=== PATIENT | male | born 1960 | race Hispanic/Latino ===

== ENCOUNTER 2017-11-20 15:15 | Inpatient (IN) | payer OTHER ==
[~2017-11-20] VITALS: Ht 180.3 cm; Wt 168.0 kg
[~2017-11-20 15:15] MED LIST: AMIO200T5 PO; ASPI-1181 PO; GLIP10TA9 PO; METF-446 PO; NAPR-1023 PO; PRAV80TA21 PO; TRAZ-187 PO; VENL75TA63 PO; [UNRECOGNIZED DRUG - OTHER] SQ
[2017-11-20 15:54] VITALS: BP 145/78
[2017-11-20 15:54] LABS: APPEARANCE,URINE Clear (CLEAR); BILIRUBIN,URINE Negative (NEGATIVE); COLOR,URINE Dark Yellow (YELLOW); GLUCOSE, URINE (UA) Negative (NEGATIVE); KETONES,URINE Trace mg/dL (NEGATIVE); LEUKOCYTE ESTERASE ,URINE Negative (NEGATIVE); NITRATE,URINE Negative (NEGATIVE); OCCULT BLOOD,URINE Negative (NEGATIVE); PROTEIN,URINE Negative (NEGATIVE)
[2017-11-20 15:59] LABS: EOSINOPHILS % (AUTO) 1.3 % (0.0-8.0); HEMATOCRIT 48.8 % (42-54); LYMPHOCYTES % (AUTO) 30.3 % (21.0-51.0); MEAN CORPUSCULAR HEMOGLOBIN 29.7 pg (27.0-33.0); MEAN CORPUSCULAR VOLUME 90.1 fL (79-99); NEUTROPHILS % (AUTO) 57.4 % (40.0-77.0); NUCLEATED RED BLOOD CELLS 0.1 % (0.0-0.19); PLATELET COUNT (AUTO) 154 K/uL (130-400); RED BLOOD CELL COUNT(AUTO) 5.42 MIL/uL (4.50-6.20); RED CELL DISTRIBUTION WIDTH 15.2 % (11.0-15.5); WHITE BLOOD COUNT (AUTO) 5.6 K/uL (4.8-10.8)
[2017-11-20 16:10] LABS: POTASSIUM 4.1 mmol/L (3.5-5.1)
[2017-11-20 16:14] LABS: INR 0.93 (0.85-1.15); PARTIAL THROMBOPLASTIN TIME 27.7 SEC (26.3-35.5); PROTHROMBIN TIME 9.8 SEC (9.6-11.6)
[2017-11-20 16:26] LABS: BACTERIA,URINE Rare /HPF (None Seen); RBC,URINE 0-1 /HPF (0-1); SQUAMOUS EPITHELIAL CELL,UR Rare /HPF (0-2); WBC,URINE 0-1 /HPF (0-1)
[2017-11-20 16:28] LABS: HYALINE CASTS, URINE 0-1 /LPF (0-1 /LPF); MUCUS,URINE Moderate LPF (None Seen)
[2017-11-21] VITALS (17 sets, daily range): BP systolic 117–165; BP diastolic 70–95
[2017-11-21] MEDS ORDERED: CEFAZOLIN 3GM /D5W 100ML 100 ML IV SCH (06:00)
[2017-11-21] MEDS ORDERED: LACTATED RINGERS 1000ML 0 ML IV ONE (10:35)
[2017-11-21] MEDS ORDERED: SODIUM CHLORIDE 0.9% 1000ML 1,000 ML IV ONE (10:42)
[2017-11-21] MEDS ORDERED: VENL100T4 PO (11:09)
[2017-11-21] MEDS ORDERED: TYL3 PO (11:09)
[2017-11-21] MEDS ORDERED: CYCL10TA7 PO (11:09)
[2017-11-21] MEDS: CEFAZOLIN SODIUM 1 GM VIAL ONE ×2 (11:11→13:50)
[2017-11-21] MEDS ORDERED: METOCLOPRAMIDE 10 MG/2 ML VIAL ONE (11:34)
[2017-11-21] MEDS ORDERED: OXYCODONE HCL 10 MG TAB.SR.12H PO ONE (11:35)
[2017-11-21] MEDS ORDERED: CELECOXIB 200 MG CAP ONE (11:35)
[2017-11-21] MEDS ORDERED: ACETAMINOPHEN EXTRA STRENGTH 500 MG TABLET ONE (11:35)
[2017-11-21] MEDS ORDERED: KETOROLAC TROMETHAMINE 15MG/ML ONE (11:36)
[2017-11-21] MEDS ORDERED: TRANEXAMIC ACID 1000MG/10ML IV ONE (12:32)
[2017-11-21] MEDS ORDERED: CEFAZOLIN SODIUM 1 GM VIAL ONE (12:40)
[2017-11-21] MEDS ORDERED: ROPIVACAINE 0.5% 5MG/ML 30ML IJ ONE (13:14)
[2017-11-21] MEDS ORDERED: KETAMINE 50MG/ML SYRINGE 50 MG/ML DISP.SYRIN IV ONE (13:15)
[2017-11-21] MEDS ORDERED: PROPOFOL 10 MG/ML 20ML VIAL IV ONE (13:18)
[2017-11-21] MEDS ORDERED: SUCCINYLCHOLINE CHLORIDE 20 MG/ML 10 ML VIAL ONE (13:18)
[2017-11-21] MEDS ORDERED: ROCURONIUM 10MG/1ML SYR 10 MG/ML ML ONE ×2 (13:25→13:48)
[2017-11-21] MEDS ORDERED: DEXAMETHASONE SOD PHOSPHATE 10MG/ML 1ML VIAL ONE (13:29)
[2017-11-21] MEDS ORDERED: FENTANYL CITRATE PF 50 MCG/1 ML 5ML AMP IV ONE (14:03)
[2017-11-21] MEDS ORDERED: CEFAZOLIN SODIUM 1 GM VIAL IRRIG ONE (14:26)
[2017-11-21] MEDS ORDERED: DiphenhydrAMINE HCL 50 MG/ML VIAL IVP PRN (15:45)
[2017-11-21] MEDS ORDERED: KETOROLAC TROMETHAMINE 15MG/ML IV PRN (15:45)
[2017-11-21] MEDS ORDERED: OXYCODONE HCL 5 MG TAB PO PRN (15:45)
[2017-11-21] MEDS ORDERED: LIDOCAINE HCL-MPF 1% 2ML VIAL IVP PRN (15:45)
[2017-11-21] MEDS ORDERED: TRAMADOL HCL 50 MG TABLET PO PRN (15:45)
[2017-11-21] MEDS: ACETAMINOPHEN EXTRA STRENGTH 500 MG TABLET PO SCH ×2 (15:45→23:53)
[2017-11-21] MEDS ORDERED: POTASSIUM CHLORIDE 20 MEQ ERTAB PO PRN (15:45)
[2017-11-21] MEDS ORDERED: TEMAZEPAM 15 MG CAPSULE PO PRN (15:45)
[2017-11-21] MEDS ORDERED: ONDANSETRON HCL 4 MG/2 ML VIAL IVP PRN (15:45)
[2017-11-21] MEDS ORDERED: POTASSIUM CHLORIDE 10% ELIXIR 20 MEQ/15 ML UDCUP PO PRN (15:45)
[2017-11-21] MEDS ORDERED: POTASSIUM CHLORIDE 20MEQ/100ML 100 ML IV PRN (15:45)
[2017-11-21] MEDS ORDERED: FERROUS FUMARATE 324 MG TABLET PO PRN (15:45)
[2017-11-21] MEDS ORDERED: NEOSTIGMINE 5MG/5ML SYR IV ONE (15:51)
[2017-11-21] MEDS ORDERED: GLYCOPYRROLATE 1 MG/5 ML SYRINGE ONE (15:51)
[2017-11-21] MEDS: INSULIN HUMULIN R 100 UNIT/ML 3ML SQ SCH ×2 (16:30→21:07)
[2017-11-21] MEDS: SODIUM CHLORIDE 0.9% 1000ML 1,000 ML IV SCH ×2 (17:55→23:53)
[2017-11-21] MEDS ORDERED: ACETAMINOPHEN-CODEINE 300/30MG TAB PO PRN (19:00)
[2017-11-21] MEDS ORDERED: CYCLOBENZAPRINE HCL 10 MG TABLET PO PRN (19:00)
[2017-11-21] MEDS: CEFAZOLIN 3GM /D5W 100ML 100 ML IV SCH (20:57)
[2017-11-21] MEDS: AMIODARONE HCL 200 MG TABLET PO SCH (20:58)
[2017-11-21] MEDS: ASPIRIN 325 MG TABLET PO SCH (20:58)
[2017-11-21] MEDS: SIMVASTATIN 20 MG TABLET PO SCH (20:58)
[2017-11-21] MEDS: PREGABALIN 25 MG CAP PO SCH (20:58)
[2017-11-21] MEDS: CELECOXIB 200 MG CAP PO SCH (20:58)
[2017-11-21] MEDS: FAMOTIDINE 20MG TAB 20 MG TAB PO SCH (20:58)
[2017-11-22] MEDS: CEFAZOLIN 3GM /D5W 100ML 100 ML IV SCH (03:58)
[2017-11-22 04:08] LABS: HEMATOCRIT 43.5 % (42-54); MEAN CORPUSCULAR HEMOGLOBIN 30.2 pg (27.0-33.0); MEAN CORPUSCULAR HGB CONC 33.1 g/dL (32.0-36.0); MEAN CORPUSCULAR VOLUME 91.1 fL (79-99); NUCLEATED RED BLOOD CELLS 0.1 % (0.0-0.19); PLATELET COUNT (AUTO) 146 K/uL (130-400); RED BLOOD CELL COUNT(AUTO) 4.78 MIL/uL (4.50-6.20); RED CELL DISTRIBUTION WIDTH 15.5 % (11.0-15.5); WHITE BLOOD COUNT (AUTO) 9.4 K/uL (4.8-10.8)
[2017-11-22 04:18] LABS: POTASSIUM 4.7 mmol/L (3.5-5.1)
[2017-11-22 04:55] VITALS: BP 109/52
[2017-11-22] MEDS: INSULIN HUMULIN R 100 UNIT/ML 3ML SQ SCH ×4 (06:28→20:45)
[2017-11-22 07:23] VITALS: BP 139/74
[2017-11-22] MEDS: ACETAMINOPHEN EXTRA STRENGTH 500 MG TABLET PO SCH ×3 (07:45→23:47)
[2017-11-22] MEDS: VENLAFAXINE HCL 75 MG PO SCH (09:00)
[2017-11-22] MEDS: ASPIRIN 325 MG TABLET PO SCH ×2 (09:05→20:45)
[2017-11-22] MEDS: FAMOTIDINE 20MG TAB 20 MG TAB PO SCH ×2 (09:05→20:45)
[2017-11-22] MEDS: TAMSULOSIN HCL 0.4 MG CAP.ER.24H PO SCH (09:05)
[2017-11-22] MEDS: CELECOXIB 200 MG CAP PO SCH ×2 (09:05→20:45)
[2017-11-22] MEDS: POLYETHYLENE GLYCOL 3350 17 GM POWD.PACK PO SCH (09:06)
[2017-11-22] MEDS: AMIODARONE HCL 200 MG TABLET PO SCH ×2 (09:06→20:45)
[2017-11-22] MEDS: PREGABALIN 25 MG CAP PO SCH ×2 (09:06→20:45)
[2017-11-22 11:17] VITALS: BP 139/95
[2017-11-22] MEDS: SODIUM CHLORIDE 0.9% 1000ML 1,000 ML IV SCH (11:19)
[2017-11-22] MEDS: CALCIUM CARBONATE 500 MG TABLET PO PRN ×2 (11:56→23:47)
[2017-11-22 16:00] VITALS: BP 138/66
[2017-11-22] MEDS: OXYCODONE HCL 5 MG TAB PO PRN ×2 (16:21→20:47)
[2017-11-22 19:25] VITALS: BP 144/77
[2017-11-22] MEDS: SIMVASTATIN 20 MG TABLET PO SCH (20:45)
[2017-11-22] MEDS: VENLAFAXINE HCL XR 150 MG CAP PO SCH (20:45)
[2017-11-22 23:35] VITALS: BP 153/81
[2017-11-22 23:39] LABS: APPEARANCE,URINE Clear (CLEAR); BILIRUBIN,URINE Negative (NEGATIVE); COLOR,URINE Yellow (YELLOW); GLUCOSE, URINE (UA) 500 mg/dL (NEGATIVE); KETONES,URINE Negative (NEGATIVE); LEUKOCYTE ESTERASE ,URINE Negative (NEGATIVE); NITRATE,URINE Negative (NEGATIVE); OCCULT BLOOD,URINE Negative (NEGATIVE); PROTEIN,URINE Negative (NEGATIVE); UROBILINOGEN,URINE 0.2 mg/dL (0.2-1.0)
[2017-11-23] MEDS: OXYCODONE HCL 5 MG TAB PO PRN ×2 (05:58→21:27)
[2017-11-23] MEDS: INSULIN HUMULIN R 100 UNIT/ML 3ML SQ SCH ×3 (06:06→21:00)
[2017-11-23 08:00] VITALS: BP 146/68
[2017-11-23] MEDS: POLYETHYLENE GLYCOL 3350 17 GM POWD.PACK PO SCH (08:43)
[2017-11-23] MEDS: ACETAMINOPHEN EXTRA STRENGTH 500 MG TABLET PO SCH ×2 (08:44→21:26)
[2017-11-23] MEDS: ASPIRIN 325 MG TABLET PO SCH ×2 (08:44→21:25)
[2017-11-23] MEDS: AMIODARONE HCL 200 MG TABLET PO SCH ×2 (08:44→21:26)
[2017-11-23] MEDS: PREGABALIN 25 MG CAP PO SCH ×2 (08:44→21:25)
[2017-11-23] MEDS: FAMOTIDINE 20MG TAB 20 MG TAB PO SCH ×2 (08:45→21:25)
[2017-11-23] MEDS: TAMSULOSIN HCL 0.4 MG CAP.ER.24H PO SCH (08:45)
[2017-11-23] MEDS: CELECOXIB 200 MG CAP PO SCH ×2 (08:45→21:25)
[2017-11-23] MEDS: VENLAFAXINE HCL 75 MG PO SCH (08:48)
[2017-11-23 11:00] VITALS: BP 148/66
[2017-11-23] MEDS ORDERED: ASPI-1012 PO (12:22)
[2017-11-23] MEDS ORDERED: HYDR-309 PO (12:22)
[2017-11-23 19:00] VITALS: BP 139/62
[2017-11-23] MEDS: VENLAFAXINE HCL XR 150 MG CAP PO SCH (19:50)
[2017-11-23] MEDS: SIMVASTATIN 20 MG TABLET PO SCH (21:25)
[2017-11-23 23:00] VITALS: BP 149/83
[2017-11-24 03:00] VITALS: BP 148/76
[2017-11-24] MEDS: INSULIN HUMULIN R 100 UNIT/ML 3ML SQ SCH (06:21)
[2017-11-24 07:56] VITALS: BP 152/81
[2017-11-24] MEDS: PREGABALIN 25 MG CAP PO SCH (08:57)
[2017-11-24] MEDS: ACETAMINOPHEN EXTRA STRENGTH 500 MG TABLET PO SCH (08:59)
[2017-11-24] MEDS: TAMSULOSIN HCL 0.4 MG CAP.ER.24H PO SCH (09:00)
[2017-11-24] MEDS: AMIODARONE HCL 200 MG TABLET PO SCH (09:00)
[2017-11-24] MEDS: VENLAFAXINE HCL 75 MG PO SCH (09:00)
[2017-11-24] MEDS: POLYETHYLENE GLYCOL 3350 17 GM POWD.PACK PO SCH (09:00)
[2017-11-24] MEDS: FAMOTIDINE 20MG TAB 20 MG TAB PO SCH (09:00)
[2017-11-24] MEDS: ASPIRIN 325 MG TABLET PO SCH (09:00)
[2017-11-24] MEDS: CELECOXIB 200 MG CAP PO SCH (09:00)
[2017-11-24] MEDS ORDERED: BISACODYL 10 MG SUPP.RECT RC PRN (15:45)
== END 2017-11-24 10:12 | disposition home health service (06) | DRG 470 ==
LOC: EDSTATUS 15:15 → DAHIP 11-21 08:40 → 4AH 11-21 17:12
PROVIDERS: ADMIT Orthopaedic Surgery; ATTEND Orthopaedic Surgery
PROC: 0SRC0J9 Replacement of Right Knee Joint with Synthetic Substitute, Cemented, Open Approach (ICD-10-PCS; principal; 2017-11-21 13:10)
DX: M17.11 Unilateral primary osteoarthritis, right knee (principal); I50.42 Chronic combined systolic (congestive) and diastolic (congestive) heart failure; Z68.43 Body mass index [BMI] 50.0-59.9, adult; C81.90 Hodgkin lymphoma, unspecified, unspecified site; I11.0 Hypertensive heart disease with heart failure; E11.65 Type 2 diabetes mellitus with hyperglycemia; F32.9 Major depressive disorder, single episode, unspecified; F41.9 Anxiety disorder, unspecified; F43.10 Post-traumatic stress disorder, unspecified; G89.29 Other chronic pain; J44.9 Chronic obstructive pulmonary disease, unspecified; E78.5 Hyperlipidemia, unspecified; E66.01 Morbid (severe) obesity due to excess calories; J45.40 Moderate persistent asthma, uncomplicated; F17.200 Nicotine dependence, unspecified, uncomplicated; Z99.81 Dependence on supplemental oxygen; Z83.3 Family history of diabetes mellitus; Z82.49 Family history of ischemic heart disease and other diseases of the circulatory system
CPT/HCPCS: 36415; 80048; 81001; 81003; 82948; 85025; 85027; 85610; 85730; 87088; 88305; 88311; 94660; 96374; 96375; A4218; J0330; J0690; J1100; J1815; J1885; J2704; J2710; J2765; J2795; J3010; J3490; J7030; J7120

== ENCOUNTER 2018-11-05 14:00 | Inpatient (IN) | payer OTHER ==
[~2018-11-05] VITALS: Ht 177.8 cm; Wt 172.4 kg
[~2018-11-05 14:00] MED LIST changes: +ASPI-1012 PO; -ASPI-1181 PO; +CYCL10TA7 PO; -GLIP10TA9 PO; +HYDR-4457 PO; -METF-446 PO; -NAPR-1023 PO; -TRAZ-187 PO; +VENL100T4 PO; -[UNRECOGNIZED DRUG - OTHER] SQ
[2018-12-06 11:05] VITALS: BP 140/94
[2018-12-06 11:29] LABS: BASOPHILS % (AUTO) 0.7 % (0.0-5.0); EOSINOPHILS % (AUTO) 0.8 % (0.0-8.0); HEMATOCRIT 44.1 % (42-54); LYMPHOCYTES % (AUTO) 34.6 % (21.0-51.0); MEAN CORPUSCULAR HEMOGLOBIN 30.2 pg (27.0-33.0); MEAN CORPUSCULAR HGB CONC 33.4 g/dL (32.0-36.0); MEAN CORPUSCULAR VOLUME 90.6 fL (79-99); NEUTROPHILS % (AUTO) 56.9 % (40.0-77.0); NUCLEATED RED BLOOD CELLS 0.1 % (0.0-0.19); PLATELET COUNT (AUTO) 168 K/uL (130-400); RED BLOOD CELL COUNT(AUTO) 4.87 MIL/uL (4.50-6.20); RED CELL DISTRIBUTION WIDTH 14.9 % (11.0-15.5); WHITE BLOOD COUNT (AUTO) 7.3 K/uL (4.8-10.8)
[2018-12-06 11:37] LABS: POTASSIUM 4.5 mmol/L (3.5-5.1)
[2018-12-06 11:48] LABS: INR 0.91 (0.85-1.15); PROTHROMBIN TIME 9.6 SEC (9.6-11.6)
[2018-12-06 12:01] LABS: APPEARANCE,URINE Clear (CLEAR); BILIRUBIN,URINE Negative (NEGATIVE); COLOR,URINE Yellow (YELLOW); GLUCOSE, URINE (UA) >=1000 mg/dL (NEGATIVE); KETONES,URINE Negative (NEGATIVE); LEUKOCYTE ESTERASE ,URINE Negative (NEGATIVE); NITRATE,URINE Negative (NEGATIVE); OCCULT BLOOD,URINE Negative (NEGATIVE); PROTEIN,URINE Negative (NEGATIVE); UROBILINOGEN,URINE 0.2 mg/dL (0.2-1.0)
[2018-12-06 12:19] LABS: BACTERIA,URINE Rare /HPF (None Seen); RBC,URINE 0-1 /HPF (0-1); WBC,URINE 0-1 /HPF (0-1)
[2018-12-06] MEDS: CEFAZOLIN 3GM /D5W 100ML 100 ML IV SCH (13:00)
[2018-12-07] MEDS: CEFAZOLIN 3GM /D5W 100ML 100 ML IV SCH (13:00)
[2018-12-09] VITALS (24 sets, daily range): BP systolic 66–149; BP diastolic 57–81
[2018-12-09] MEDS ORDERED: CEFAZOLIN SODIUM 1 GM VIAL ONE ×2 (07:58→10:34)
[2018-12-09] MEDS ORDERED: TRANEXAMIC ACID 1000MG/10ML IV ONE (07:58)
[2018-12-09] MEDS ORDERED: CITRIC ACID/SODIUM CITRATE 30 ML UDCUP PO ONE (08:15)
[2018-12-09] MEDS ORDERED: IPRATROPIUM/ALBUTEROL SULFATE 3 ML SOLUTION IH PRN (08:15)
[2018-12-09] MEDS ORDERED: SODIUM CHLORIDE 0.9% 1000ML 1,000 ML IV SCH (08:15)
[2018-12-09] MEDS ORDERED: METOPROLOL TARTRATE 25 MG TAB PO SCH (08:15)
[2018-12-09] MEDS ORDERED: LACTATED RINGERS 1000ML 1,000 ML IV SCH (08:15)
[2018-12-09] MEDS ORDERED: KETOROLAC TROMETHAMINE 30MG/ML IVP PRN (08:15)
[2018-12-09] MEDS ORDERED: MORPHINE SULFATE 5 MG/ML VIAL IVP PRN (08:15)
[2018-12-09] MEDS ORDERED: MEPERIDINE-PF 50 MG/ML SYG IVP PRN (08:15)
[2018-12-09] MEDS ORDERED: SCOPOLAMINE HYDROBROMIDE 1 EACH ADH..PATCH TD ONE (08:15)
[2018-12-09] MEDS ORDERED: FAMOTIDINE/PF 20 MG/2 ML VIAL IV ONE (08:15)
[2018-12-09] MEDS ORDERED: METOCLOPRAMIDE 10 MG/2 ML VIAL IVP PRN (08:15)
[2018-12-09] MEDS ORDERED: ONDANSETRON HCL 4 MG/2 ML VIAL IVP PRN ×2 (08:15→11:00)
[2018-12-09] MEDS: CEFAZOLIN SODIUM 1 GM VIAL ONE ×2 (08:25→08:54)
--- NOTE | 2018-12-09 08:25 | NUR ---
POTENTIAL FOR INFECTION SHAVED RIGHT LEG / KNEE PER SHAUNA FREEDMAN, FOLLOWED BY WIPING WITH HARPER: 2% CHLORHEXIDINE GLUCONATE CLOTH PATIENTS PRE-OP SKIN PREP.
[2018-12-09] MEDS ORDERED: LIDOCAINE PF 2% 5ML ABBOJECT ONE (08:37)
[2018-12-09] MEDS ORDERED: FENTANYL CITRATE PF 50 MCG/1 ML 5ML AMP IV ONE (08:38)
[2018-12-09] MEDS ORDERED: MIDAZOLAM HCL 1 MG/ML 2ML VIAL ONE (08:38)
[2018-12-09] MEDS ORDERED: ROCURONIUM 10MG/1ML SYR 10 MG/ML ML ONE ×2 (08:38→09:45)
[2018-12-09] MEDS ORDERED: PROPOFOL 10 MG/ML 20ML VIAL IV ONE (08:38)
[2018-12-09] MEDS ORDERED: CEFAZOLIN SODIUM 1 GM VIAL IRRIG ONE (09:33)
[2018-12-09] MEDS ORDERED: THROMBIN-JMI 5000 UNIT/VIAL TP ONE (10:19)
[2018-12-09] MEDS ORDERED: GLARGINE SQ (10:46)
[2018-12-09] MEDS ORDERED: METO25TA6 PO (10:46)
[2018-12-09] MEDS ORDERED: LOPE2CAP PO (10:46)
[2018-12-09] MEDS ORDERED: LOSA100T58 PO (10:46)
[2018-12-09] MEDS ORDERED: APIX5TAB PO (10:46)
[2018-12-09] MEDS ORDERED: METF-444 PO (10:46)
[2018-12-09] MEDS ORDERED: GLYCOPYRROLATE 1 MG/5 ML SYRINGE ONE (10:54)
[2018-12-09] MEDS ORDERED: ONDANSETRON HCL 4 MG/2 ML VIAL ONE (10:54)
[2018-12-09] MEDS ORDERED: NEOSTIGMINE 5MG/5ML SYR IV ONE (10:54)
[2018-12-09] MEDS ORDERED: DEXAMETHASONE SOD PHOSPHATE 10MG/ML 1ML VIAL ONE (10:54)
[2018-12-09] MEDS ORDERED: TRAMADOL HCL 50 MG TABLET PO PRN (11:00)
[2018-12-09] MEDS ORDERED: FERROUS FUMARATE 324 MG TABLET PO PRN (11:00)
[2018-12-09] MEDS ORDERED: DiphenhydrAMINE HCL 50 MG/ML VIAL IVP PRN (11:00)
[2018-12-09] MEDS: ACETAMINOPHEN EXTRA STRENGTH 500 MG TABLET PO SCH ×2 (11:00→18:25)
[2018-12-09] MEDS ORDERED: POTASSIUM CHLORIDE 20MEQ/100ML 100 ML IV PRN (11:00)
[2018-12-09] MEDS ORDERED: TEMAZEPAM 15 MG CAPSULE PO PRN (11:00)
[2018-12-09] MEDS ORDERED: POTASSIUM CHLORIDE 10% ELIXIR 20 MEQ/15 ML UDCUP PO PRN (11:00)
[2018-12-09] MEDS ORDERED: POTASSIUM CHLORIDE 20 MEQ ERTAB PO PRN (11:00)
[2018-12-09] MEDS ORDERED: LIDOCAINE HCL-MPF 1% 2ML VIAL IV PRN (11:00)
[2018-12-09] MEDS ORDERED: MEPERIDINE-PF 25 MG/ML SYG ONE (11:20)
[2018-12-09] MEDS: INSULIN HUMULIN R 100 UNIT/ML 3ML SQ SCH ×3 (11:30→21:01)
[2018-12-09] MEDS ORDERED: SCOPOLAMINE HYDROBROMIDE 1 EACH ADH..PATCH TD SCH (11:45)
[2018-12-09] MEDS ORDERED: CITRIC ACID/SODIUM CITRATE 30 ML UDCUP PO SCH (11:45)
[2018-12-09] MEDS ORDERED: FAMOTIDINE/PF 20 MG/2 ML VIAL IV SCH (11:45)
[2018-12-09] MEDS: CEFAZOLIN 3GM /D5W 100ML 100 ML IV SCH ×2 (16:13→23:39)
[2018-12-09] MEDS: SODIUM CHLORIDE 0.9% 1000ML 1,000 ML IV SCH ×2 (16:13→19:54)
[2018-12-09] MEDS: OXYCODONE HCL 5 MG TAB PO PRN (16:58)
[2018-12-09] MEDS: KETOROLAC TROMETHAMINE 15MG/ML IV PRN (19:57)
[2018-12-09] MEDS: METOPROLOL TARTRATE 25 MG TAB PO SCH (19:58)
[2018-12-09] MEDS: FAMOTIDINE 20MG TAB 20 MG TAB PO SCH (19:58)
[2018-12-09] MEDS: VENLAFAXINE HCL 75 MG TAB PO SCH (19:58)
[2018-12-09] MEDS: CELECOXIB 200 MG CAP PO SCH (19:58)
[2018-12-09] MEDS: PREGABALIN 25 MG CAP PO SCH (19:58)
[2018-12-09] MEDS: LOPERAMIDE HCL 2 MG CAP PO SCH (19:59)
[2018-12-10] MEDS: OXYCODONE HCL 5 MG TAB PO PRN ×4 (00:13→21:30)
[2018-12-10] MEDS: ACETAMINOPHEN EXTRA STRENGTH 500 MG TABLET PO SCH ×3 (02:46→19:18)
[2018-12-10 03:35] VITALS: BP 112/66
[2018-12-10 04:18] LABS: HEMATOCRIT 37.4 % (42-54); MEAN CORPUSCULAR HEMOGLOBIN 29.6 pg (27.0-33.0); MEAN CORPUSCULAR VOLUME 89.9 fL (79-99); PLATELET COUNT (AUTO) 159 K/uL (130-400); RED BLOOD CELL COUNT(AUTO) 4.16 MIL/uL (4.50-6.20); RED CELL DISTRIBUTION WIDTH 15.6 % (11.0-15.5); WHITE BLOOD COUNT (AUTO) 11.5 K/uL (4.8-10.8)
[2018-12-10 04:39] LABS: CREATININE 0.8 mg/dL (0.5-1.5); POTASSIUM 4.3 mmol/L (3.5-5.1)
[2018-12-10] MEDS: SODIUM CHLORIDE 0.9% 1000ML 1,000 ML IV SCH (05:42)
[2018-12-10] MEDS: INSULIN HUMULIN R 100 UNIT/ML 3ML SQ SCH ×4 (05:42→20:08)
[2018-12-10] MEDS: INSULIN GLARGINE 100 UNITS/ML 10 ML VIAL SQ SCH (05:46)
[2018-12-10 07:57] VITALS: BP 140/77
[2018-12-10] MEDS: LOSARTAN 100 MG TABLET PO SCH (10:16)
[2018-12-10] MEDS: PREGABALIN 25 MG CAP PO SCH ×2 (10:16→19:59)
[2018-12-10] MEDS: APIXABAN 5 MG TABLET PO SCH (10:16)
[2018-12-10] MEDS: SIMVASTATIN 20 MG TABLET PO SCH (10:16)
[2018-12-10] MEDS: FAMOTIDINE 20MG TAB 20 MG TAB PO SCH ×2 (10:17→19:59)
[2018-12-10] MEDS: POLYETHYLENE GLYCOL 3350 17 GM POWD.PACK PO SCH (10:18)
[2018-12-10] MEDS: METFORMIN HCL 500 MG TABLET PO SCH (10:18)
[2018-12-10] MEDS: CELECOXIB 200 MG CAP PO SCH ×2 (10:18→19:59)
[2018-12-10 11:11] VITALS: BP 137/74
[2018-12-10] MEDS: CALCIUM CARBONATE 500 MG TABLET PO PRN ×2 (11:44→20:27)
[2018-12-10] MEDS: KETOROLAC TROMETHAMINE 15MG/ML IV PRN ×2 (11:58→20:05)
[2018-12-10 16:26] VITALS: BP 116/65
[2018-12-10 19:00] VITALS: BP 116/64
[2018-12-10] MEDS: LOPERAMIDE HCL 2 MG CAP PO SCH (19:59)
[2018-12-10] MEDS: VENLAFAXINE HCL 75 MG TAB PO SCH (19:59)
[2018-12-10] MEDS: METOPROLOL TARTRATE 25 MG TAB PO SCH (19:59)
[2018-12-10 23:35] VITALS: BP 114/61
[2018-12-11] MEDS: OXYCODONE HCL 5 MG TAB PO PRN ×2 (00:45→08:43)
[2018-12-11] MEDS: ACETAMINOPHEN EXTRA STRENGTH 500 MG TABLET PO SCH ×3 (03:00→18:00)
[2018-12-11 03:41] VITALS: BP 123/64
[2018-12-11] MEDS: INSULIN GLARGINE 100 UNITS/ML 10 ML VIAL SQ SCH (05:47)
[2018-12-11] MEDS: INSULIN HUMULIN R 100 UNIT/ML 3ML SQ SCH ×3 (05:48→16:59)
[2018-12-11 07:47] VITALS: BP 134/77
[2018-12-11] MEDS: FAMOTIDINE 20MG TAB 20 MG TAB PO SCH ×2 (08:42→20:42)
[2018-12-11] MEDS: APIXABAN 5 MG TABLET PO SCH (08:42)
[2018-12-11] MEDS: POLYETHYLENE GLYCOL 3350 17 GM POWD.PACK PO SCH (08:42)
[2018-12-11] MEDS: METFORMIN HCL 500 MG TABLET PO SCH (08:42)
[2018-12-11] MEDS: PREGABALIN 25 MG CAP PO SCH ×2 (08:42→20:43)
[2018-12-11] MEDS: LOSARTAN 100 MG TABLET PO SCH (08:42)
[2018-12-11] MEDS: SIMVASTATIN 20 MG TABLET PO SCH (08:42)
[2018-12-11] MEDS: CELECOXIB 200 MG CAP PO SCH ×2 (08:42→20:42)
[2018-12-11 11:02] VITALS: BP 115/54
--- NOTE | 2018-12-11 14:00 | NUR ---
DRESSING CHANGED DRESSING CHANGED PER DR. DICK, INCISION IS DRY AND INTACT WITH MEDIGLUE. DRY DRESSING APPLIED, WILL MONITOR, PT TOLERATED DRESSING CHANGE WELL.
--- NOTE | 2018-12-11 16:00 | NUR ---
[facility] - NAME OF SAMUEL BY BENJI HOWELL RN INFORMED, CHART TAGGED WITH PHONE NUMBER Addendum: 12/11/18 at 1748 by VENKATESH LEONARDO RN CM Amended: Links added.
--- NOTE | 2018-12-11 16:00 | NUR ---
REDRESSED DRESSING TO RIGHT KNEE DRESSING TO RIGHT KNEE NOTED RED DRAINAGE SATURATION TOWARDS DISTAL PART OF INCISION DRESSING. WHEN REMOVED, NOTED PINPRICK OPENING WITH SLIGHT DRAINAGE. PRESSURE HELD, DRAINAGE STOPPED. DR. DICK MADE AWARE, OK FOR STERISTRIP TO SECURE PINPRICK OPENING AND APPLY DRY DRESSING TO INCISION. STERISTRIP PLACED, INCISION REDRESSED. WILL MONITOR PT CLOSELY.
--- NOTE | 2018-12-11 16:40 | NUR ---
DIET EDUCATION NEEMA provided Diabetes Diet Education to Pt. NEEMA reviewed reference materials and handouts with Pt. Pt with some disinterest. No questions at this time. NEEMA encouraged Pt to review materials and notify for any questions or concerns. RD to follow up. Addendum: 12/11/18 at [address] RD Amended: Links added.
--- NOTE | 2018-12-11 16:46 | NUR ---
RD NOTIFICATION Pt admitted for Primary Osteoarthritis. Post Op Rt TKA. Pt tolerating 60gm CCD with no report of GI distress and PO intake at 100%. Pt with Obesity Grade III, BMI 54.5. RD to continue to monitor. RD provided Diabetes Diet education. Pt LBM 12/10/18. Pt monitored labs: Glu 183, Ca 7.9. Please notify Rd as additional nutrition concerns arise. Thank you. Addendum: 12/11/18 at [address] RD Amended: Links added.
--- NOTE | 2018-12-11 18:30 | NUR ---
REPORT CALLED REPORT CALLED TO HOME HEALTH PRIOR TO DISCHARGE.
[2018-12-11] MEDS ORDERED: HYDR-4457 PO (18:33)
[2018-12-11] MEDS: METOPROLOL TARTRATE 25 MG TAB PO SCH (20:42)
[2018-12-11] MEDS: LOPERAMIDE HCL 2 MG CAP PO SCH (20:42)
[2018-12-11] MEDS: VENLAFAXINE HCL 75 MG TAB PO SCH (20:42)
--- NOTE | 2018-12-11 20:50 | NUR ---
DISCHARGE DISCHARGE INSTRUCTIONS/TEACHING DONE WITH PATIENT USING TEACHBACK METHOD, VERBALIZED UNDERSTANDING. NO NOTED SOB OR DISTRESS. NEW MEDICATION ADMINISTRATION TEACHING DONE WITH PATIENT, VERBALIZED UNDERSTANDING. PRESCRIPTION SLIP PROVIDED WITH INSTRUCTION PAPERS. REVIEWED WITH PATIENT NEED TO ATTEND DR. DICK APPOINTMENT. DRESSING TO RIGHT KNEE IS DRY AND INTACT. DRESSING CHANGED BY EBONI DUPREE PER DR. DICK, INCISION IS DRY AND INTACT. DRESSING TEACHING DONE WITH PATIENT, VERBALIZED UNDERSTANDING. IV REMOVED, CATH TIP INTACT. PENDING TO BE TRANSFERRED OUT VIA PRIVATE VEHICLE. HE HAS CALLED HIS PROVIDER HE SAYS TO COME PICK HIM UP. REPORT HAS BEEN CALLED TO HOME HEALTH BY EBONI DUPREE PER HER REPORT.
[2018-12-12] MEDS ORDERED: BISACODYL 10 MG SUPP.RECT RC PRN (11:00)
== END 2018-12-11 21:30 | disposition home health service (06) | DRG 470 ==
LOC: DAHIP 12-09 07:21 → 4AH 12-09 11:23
PROVIDERS: ADMIT Orthopaedic Surgery; ATTEND Orthopaedic Surgery
PROC: 0SRC0J9 Replacement of Right Knee Joint with Synthetic Substitute, Cemented, Open Approach (ICD-10-PCS; principal; 2018-12-09 08:34)
DX: M17.11 Unilateral primary osteoarthritis, right knee (principal); I50.42 Chronic combined systolic (congestive) and diastolic (congestive) heart failure; G47.33 Obstructive sleep apnea (adult) (pediatric); I11.0 Hypertensive heart disease with heart failure; E11.9 Type 2 diabetes mellitus without complications; F41.9 Anxiety disorder, unspecified; F32.9 Major depressive disorder, single episode, unspecified; F43.10 Post-traumatic stress disorder, unspecified; J44.9 Chronic obstructive pulmonary disease, unspecified; G89.29 Other chronic pain; E78.5 Hyperlipidemia, unspecified; Z99.81 Dependence on supplemental oxygen
CPT/HCPCS: 36415; 80048; 81001; 82948; 85025; 85027; 85610; 87641; 88304; 88311; 94640; 97039; G0378; J0690; J1100; J1815; J1885; J2001; J2175; J2250; J2405; J2704; J2710; J3010; J3490; J7030

== ENCOUNTER 2019-10-19 13:42 | Inpatient (IN) | payer OTHER ==
[~2019-10-19] VITALS: Ht 180.3 cm; Wt 160.8 kg
[~2019-10-19 13:42] MED LIST changes: -AMIO200T5 PO; +APIX5TAB PO; -ASPI-1012 PO; -CYCL10TA7 PO; +GLARGINE SQ; +LOPE2CAP PO; +LOSA100T58 PO; +METF-444 PO; +METO25TA6 PO; +VENL-61 PO; -VENL75TA63 PO
[2019-10-19] MEDS ORDERED: ASPIRIN 325 MG TABLET ONE (13:53)
[2019-10-19 14:14] LABS: BASOPHILS % (AUTO) 0.5 % (0.0-5.0); EOSINOPHILS % (AUTO) 0.7 % (0.0-8.0); LYMPHOCYTES % (AUTO) 30.5 % (21.0-51.0); MEAN CORPUSCULAR HEMOGLOBIN 28.5 pg (27.0-33.0); MEAN CORPUSCULAR HGB CONC 31.9 g/dL (32.0-36.0); MEAN CORPUSCULAR VOLUME 89.4 fL (79-99); MONOCYTES % (AUTO) 7.1 % (3.0-13.0); PLATELET COUNT (AUTO) 170 K/uL (130-400); RED BLOOD CELL COUNT(AUTO) 5.37 MIL/uL (4.50-6.20); RED CELL DISTRIBUTION WIDTH 14.5 % (11.0-15.5); WHITE BLOOD COUNT (AUTO) 9.6 K/uL (4.8-10.8)
[2019-10-19 14:19] LABS: CREATININE 0.7 mg/dL (0.5-1.5); POTASSIUM 4.1 mmol/L (3.5-5.1)
[2019-10-19 14:22] LABS: INR 0.95 (0.85-1.15); PARTIAL THROMBOPLASTIN TIME 29.6 SEC (26.3-35.5); PROTHROMBIN TIME 10.3 SEC (9.6-11.6)
[2019-10-19 14:24] LABS: ALBUMIN 4.1 g/dL (3.5-5.0); BILIRUBIN,TOTAL 0.2 mg/dL (0.2-1.0); TOTAL PROTEIN, SERUM 7.1 g/dL (6.0-8.3)
[2019-10-19] MEDS ORDERED: FENTANYL CITRATE PF 50 MCG/1 ML 2ML VIAL ONE (14:31)
[2019-10-19] MEDS ORDERED: MAGNESIUM 2GM PREMIX 50ML 0 ML IV ONE (15:13)
[2019-10-19] MEDS ORDERED: IOHEXOL 350 MG/ML 100ML INFUS..BTL IV ONE (16:02)
[2019-10-19] MEDS ORDERED: METOPROLOL TARTRATE 1 MG/ML 5ML VIAL IV ONE (16:06)
[2019-10-19 16:30] LABS: APPEARANCE,URINE Cloudy (CLEAR); BILIRUBIN,URINE Negative (NEGATIVE); COLOR,URINE Yellow (YELLOW); GLUCOSE, URINE (UA) >=1000 mg/dL (NEGATIVE); KETONES,URINE Negative (NEGATIVE); LEUKOCYTE ESTERASE ,URINE Trace (NEGATIVE); NITRATE,URINE Negative (NEGATIVE); OCCULT BLOOD,URINE Negative (NEGATIVE); PROTEIN,URINE Trace mg/dL (NEGATIVE)
[2019-10-19] MEDS ORDERED: MAGNESIUM SULFATE 1 GM in SODIUM CHLORIDE 0.9% 50 ML IM SCH (16:30)
[2019-10-19 16:37] LABS: AMPHET/METH SCREEN,URINE NEGATIVE (NEGATIVE); BARBITURATE SCREEN, URINE NEGATIVE (NEGATIVE); BENZODIAZEPINES SCREEN,URINE NEGATIVE (NEGATIVE); CANNABINOID SCREEN,URINE NEGATIVE (NEGATIVE); COCAINE SCREEN,URINE NEGATIVE (NEGATIVE); OPIATE SCREEN,URINE NEGATIVE (NEGATIVE); PHENCYCLIDINE SCREEN,URINE NEGATIVE (NEGATIVE)
[2019-10-19 16:44] LABS: BACTERIA,URINE Moderate /HPF (None Seen); MUCUS,URINE Few LPF (None Seen); SQUAMOUS EPITHELIAL CELL,UR Few /HPF (0-2)
[2019-10-19] MEDS: SODIUM CHLORIDE 0.9% 1000ML 1,000 ML IV SCH (18:28)
[2019-10-19] MEDS ORDERED: MAG HYDROX/AL HYDROX/SIMETH 30 ML, LIDOCAINE HCL 2% VISCOUS 30 ML, DIPHENHYDRAMINE HCL ... PO PRN ×3 (18:30)
[2019-10-19] MEDS ORDERED: DIPHENHYDRAMINE HCL 25 MG CAPSULE PO PRN (18:30)
[2019-10-19] MEDS ORDERED: ONDANSETRON HCL 4 MG/2 ML VIAL IV PRN (18:30)
[2019-10-19] MEDS ORDERED: ACETAMINOPHEN 325 MG TAB PO PRN ×2 (18:30)
[2019-10-19] MEDS ORDERED: BENZONATATE 100 MG CAPSULE PO PRN (18:30)
[2019-10-19] MEDS ORDERED: LIDOCAINE HCL 2% VISCOUS 30 ML, MAG HYDROX/AL HYDROX/SIMETH 30 ML, BELLADONNA-PHENOBARB... PO PRN ×3 (18:30)
[2019-10-19] MEDS ORDERED: ZOLPIDEM TARTRATE 5 MG TAB PO PRN (18:30)
[2019-10-19] MEDS ORDERED: MORPHINE SULFATE 2 MG/ML 1ML SYG IV PRN (18:30)
[2019-10-19] MEDS ORDERED: LACTULOSE 20 GM/30 ML UDCUP PO PRN (18:30)
[2019-10-19] MEDS ORDERED: GUAIFENESIN-DM 200/20 MG 10 ML PO PRN (18:30)
[2019-10-19] MEDS ORDERED: MAG HYDROX/AL HYDROX/SIMETH ES 30 ML SUSP UDCUP PO PRN (18:30)
[2019-10-19] MEDS ORDERED: DiphenhydrAMINE HCL 50 MG/ML VIAL IV PRN (18:30)
[2019-10-19] MEDS ORDERED: NITROGLYCERIN 0.4 MG SL TAB SL PRN (18:30)
[2019-10-19] MEDS ORDERED: MORPHINE SULFATE 4 MG/1ML SYG IV PRN (18:30)
[2019-10-19] MEDS ORDERED: LORAZEPAM 2 MG/ML 1 ML VIAL IM PRN (18:45)
[2019-10-19 19:07] LABS: HEMOGLOBIN A1C 8.6 % (4.0-6.0)
[2019-10-19 19:28] LABS: CREATINE KINASE, TOTAL 77 U/L (21-232); MYOGLOBIN 33 ng/mL (10-92); PHOSPHORUS 3.3 mg/dL (2.5-4.9); TROPONIN I < 0.04 ng/mL (0.00-0.06)
[2019-10-19] MEDS: NITROGLYCERIN 1GM/1 INCH PACKET TD SCH (19:30)
[2019-10-19] MEDS ORDERED: FAMOTIDINE 20MG TAB 20 MG TAB ONE (20:31)
[2019-10-19] MEDS ORDERED: LEVETIRACETAM 500 MG TABLET PO ONE (20:32)
[2019-10-19] MEDS ORDERED: ATORVASTATIN CALCIUM 40 MG TABLET ONE (20:32)
[2019-10-19] MEDS ORDERED: ATORVASTATIN CALCIUM 40 MG TABLET PO SCH (21:00)
[2019-10-19] MEDS: FAMOTIDINE/PF 20 MG/2 ML VIAL IV SCH (21:00)
[2019-10-19] MEDS ORDERED: INSULIN GLARGINE 100 UNITS/ML 10 ML VIAL SQ SCH (21:00)
[2019-10-19] MEDS: INSULIN LISPRO 100 UNIT/ML 3ML SQ SCH (21:00)
[2019-10-19] MEDS ORDERED: LEVETIRACETAM 500 MG TABLET PO SCH (21:00)
[2019-10-19] MEDS ORDERED: LORAZEPAM 2 MG/ML 1 ML VIAL IVP PRN (22:45)
[2019-10-19 23:13] VITALS: BP 122/65
[2019-10-20 00:13] VITALS: BP 121/73
--- NOTE | 2019-10-20 00:30 | NUR ---
Admitted from ER at 2313. Denies chest pain, sob. On room air. Oriented to room, call light, bed controls. Initial assessment done. Call light and needed items placed readily at hand. Encouraged to call prn.
[2019-10-20 01:00] VITALS: BP 150/79
[2019-10-20] MEDS: SODIUM CHLORIDE 0.9% 1000ML 1,000 ML IV SCH (01:08)
[2019-10-20 02:00] VITALS: BP 152/76
--- NOTE | 2019-10-20 02:00 | NUR ---
Noted patient snoring then desated to 90 when deeply asleep. Placed on n/c at 2 liters and saturation up to greater than 95. Again when patient deeply asleep desaturated, this time to 80 , n/c 02 increased to liters and saturation inproved. Asked patient if he has sleep apnea. States yes, on CPAP at home.
[2019-10-20 03:00] VITALS: BP 133/46
[2019-10-20 03:38] LABS: BASOPHILS % (AUTO) 0.6 % (0.0-5.0); EOSINOPHILS % (AUTO) 1.5 % (0.0-8.0); HEMATOCRIT 44.5 % (42-54); LYMPHOCYTES % (AUTO) 31.3 % (21.0-51.0); MEAN CORPUSCULAR HEMOGLOBIN 28.5 pg (27.0-33.0); MEAN CORPUSCULAR HGB CONC 31.7 g/dL (32.0-36.0); MEAN CORPUSCULAR VOLUME 89.9 fL (79-99); MONOCYTES % (AUTO) 7.6 % (3.0-13.0); NEUTROPHILS % (AUTO) 58.6 % (40.0-77.0); PLATELET COUNT (AUTO) 145 K/uL (130-400); RED BLOOD CELL COUNT(AUTO) 4.95 MIL/uL (4.50-6.20); RED CELL DISTRIBUTION WIDTH 14.6 % (11.0-15.5); WHITE BLOOD COUNT (AUTO) 6.9 K/uL (4.8-10.8)
[2019-10-20 04:06] LABS: ALANINE AMINOTRANSFERASE 30 U/L (12-78); ALBUMIN 3.1 g/dL (3.5-5.0); ASPARTATE AMINOTRANSFERASE 22 U/L (10-37); BILIRUBIN,TOTAL 0.3 mg/dL (0.2-1.0); CARBON DIOXIDE 33 mmol/L (21-32); CHLORIDE 107 mmol/L (101-111); CHOLESTEROL 140 mg/dL (<200); CREATINE KINASE, TOTAL 54 U/L (21-232); CREATININE 0.8 mg/dL (0.5-1.5); GLOMERULAR FILTR. RATE CALC 104 mL/min (>60); GLUCOSE,RANDOM 130 mg/dL (70-105); HDL CHOLESTEROL 35 mg/dL (29-71); LDL DIRECT 76 mg/dL (0-99); MYOGLOBIN 30 ng/mL (10-92); PHOSPHORUS 3.7 mg/dL (2.5-4.9); POTASSIUM 4.3 mmol/L (3.5-5.1); SODIUM SERUM 142 mmol/L (136-145); TOTAL PROTEIN, SERUM 6.2 g/dL (6.0-8.3); TRIGLYCERIDES 155 mg/dL (30-200); TROPONIN I < 0.04 ng/mL (0.00-0.06); UREA NITROGEN, BLOOD 15 mg/dL (7-18)
[2019-10-20] MEDS: NITROGLYCERIN 1GM/1 INCH PACKET TD SCH (04:15)
[2019-10-20] MEDS: INSULIN LISPRO 100 UNIT/ML 3ML SQ SCH (07:27)
[2019-10-20 08:00] VITALS: BP 131/88
[2019-10-20] MEDS ORDERED: MAGNESIUM 2GM PREMIX 50ML 50 ML IV SCH (08:15)
[2019-10-20] MEDS: FAMOTIDINE/PF 20 MG/2 ML VIAL IV SCH (08:28)
[2019-10-20 08:55] VITALS: BP 153/87
[2019-10-20] MEDS ORDERED: ASPIRIN 81MG TAB.CHEW PO SCH (09:00)
[2019-10-20] MEDS ORDERED: ENOXAPARIN SODIUM 40 MG/0.4 ML SYRINGE SQ SCH (09:00)
--- NOTE | 2019-10-20 09:05 | NUR ---
Dr Gtz at bedside to assess patient, new orders given to discharge patient home
[2019-10-20] MEDS ORDERED: LEVE-43 PO (09:33)
--- NOTE | 2019-10-20 09:55 | NUR ---
Dr Kaiser at bedside, recommending CT Brain, but patient refusing, will sign refusal form, as per Dr Kaiser patient may bed DC home if cleared by hospitalist and Cardiology. Patient was advised per Dr Kaiser to continue Keppra 500MG q AM and 1000 MG po QPM, as at home, patient verbalized understanding. Patient states having enough Keppra at home, as he just received a new bottle from [place].
--- NOTE | 2019-10-20 10:20 | NUR ---
Oral and written discharge instructions given, verbalizes understanding. SL discontinued, catheter intact, applied pressure to site, covered with 2X2 gauze and secured with tape, awaiting for provider to give ride home.
--- NOTE | 2019-10-20 11:30 | NUR ---
Discharged off floor via wheelchair with personal belongings on hand
== END 2019-10-20 11:30 | disposition home or self-care (01) | DRG 311 ==
LOC: EDH 13:42 → EDHIP 18:28 → DAHIP 23:46
PROVIDERS: ADMIT Internal Medicine; ATTEND Internal Medicine
DX: I20.9 Angina pectoris, unspecified (principal); J96.21 Acute and chronic respiratory failure with hypoxia; I50.32 Chronic diastolic (congestive) heart failure; D68.59 Other primary thrombophilia; I48.91 Unspecified atrial fibrillation; G40.909 Epilepsy, unspecified, not intractable, without status epilepticus; G47.33 Obstructive sleep apnea (adult) (pediatric); E78.5 Hyperlipidemia, unspecified; I11.0 Hypertensive heart disease with heart failure; E11.51 Type 2 diabetes mellitus with diabetic peripheral angiopathy without gangrene; E11.40 Type 2 diabetes mellitus with diabetic neuropathy, unspecified; M19.90 Unspecified osteoarthritis, unspecified site; Z96.653 Presence of artificial knee joint, bilateral; Z79.4 Long term (current) use of insulin; Z99.81 Dependence on supplemental oxygen; Z85.71 Personal history of Hodgkin lymphoma; Z87.891 Personal history of nicotine dependence; Z82.0 Family history of epilepsy and other diseases of the nervous system; Z83.3 Family history of diabetes mellitus; Z82.49 Family history of ischemic heart disease and other diseases of the circulatory system
CPT/HCPCS: 36415; 71045; 71275; 80053; 80061; 80305; 81001; 82550; 82948; 83036; 83735; 83874; 83880; 84100; 84484; 85025; 85378; 85610; 85730; 87088; 93005; G0378; J1650; J3010; J3475; J3490; Q9967

== ENCOUNTER → 2021-07-11 | Outpatient (CLI) | payer OTHER ==
[~2021-07-11] MED LIST changes: +LEVE-43 PO; +VENL-191 PO; -VENL-61 PO
== END | disposition home or self-care (01) ==
LOC: SHCH 13:34
PROVIDERS: ATTEND Internal Medicine Cardiovascular Disease
DX: M47.812 Spondylosis without myelopathy or radiculopathy, cervical region (principal); I73.9 Peripheral vascular disease, unspecified; I87.2 Venous insufficiency (chronic) (peripheral); I70.293 Other atherosclerosis of native arteries of extremities, bilateral legs
CPT/HCPCS: 93925; 93970

== ENCOUNTER 2021-08-23 11:34 | Emergency (ER) | payer OTHER ==
[~2021-08-23] VITALS: Ht 180.3 cm; Wt 156.5 kg
[2021-08-23 12:08] LABS: BASOPHILS % (AUTO) 0.7 % (0.0-5.0); EOSINOPHILS % (AUTO) 0.9 % (0.0-8.0); HEMATOCRIT 50.3 % (42-54); LYMPHOCYTES % (AUTO) 28.2 % (21.0-51.0); MEAN CORPUSCULAR HEMOGLOBIN 26.9 pg (27.0-33.0); MEAN CORPUSCULAR HGB CONC 31.2 g/dL (32.0-36.0); MEAN CORPUSCULAR VOLUME 86.1 fL (79-99); MONOCYTES % (AUTO) 8.2 % (3.0-13.0); NEUTROPHILS % (AUTO) 61.8 % (40.0-77.0); PLATELET COUNT (AUTO) 169 K/uL (130-400); RED BLOOD CELL COUNT(AUTO) 5.84 MIL/uL (4.50-6.20); RED CELL DISTRIBUTION WIDTH 17.9 % (11.0-15.5); WHITE BLOOD COUNT (AUTO) 8.9 K/uL (4.8-10.8)
[2021-08-23 12:21] LABS: INR 0.94 (0.85-1.15); PROTHROMBIN TIME 10.3 SEC (9.6-11.6)
[2021-08-23 12:23] LABS: PARTIAL THROMBOPLASTIN TIME 27.4 SEC (26.3-35.5)
[2021-08-23] MEDS ORDERED: IPRATROPIUM/ALBUTEROL SULFATE 3 ML SOLUTION IH ONE (12:30)
[2021-08-23 12:33] LABS: ALBUMIN 3.6 g/dL (3.5-5.0); BILIRUBIN,TOTAL 0.3 mg/dL (0.2-1.0); CREATININE 0.9 mg/dL (0.5-1.5); POTASSIUM 3.7 mmol/L (3.5-5.1); TOTAL PROTEIN, SERUM 7.4 g/dL (6.0-8.3)
[2021-08-23] MEDS ORDERED: ASPIRIN 325MG EC TAB PO ONE (13:30)
[2021-08-23] MEDS ORDERED: LEVETIRACETAM 500 MG/5 ML SD VIAL IV SCH (15:00)
[2021-08-23 15:21] LABS: AMPHET/METH SCREEN,URINE NEGATIVE (NEGATIVE); BARBITURATE SCREEN, URINE NEGATIVE (NEGATIVE); BENZODIAZEPINES SCREEN,URINE NEGATIVE (NEGATIVE); CANNABINOID SCREEN,URINE NEGATIVE (NEGATIVE); COCAINE SCREEN,URINE NEGATIVE (NEGATIVE); OPIATE SCREEN,URINE NEGATIVE (NEGATIVE); PHENCYCLIDINE SCREEN,URINE NEGATIVE (NEGATIVE)
[2021-08-23 15:24] LABS: APPEARANCE,URINE CLEAR (CLEAR); BILIRUBIN,URINE NEGATIVE (NEGATIVE); COLOR,URINE YELLOW (YELLOW); GLUCOSE, URINE (UA) NEGATIVE (NEGATIVE); KETONES,URINE NEGATIVE (NEGATIVE); LEUKOCYTE ESTERASE ,URINE NEGATIVE (NEGATIVE); NITRATE,URINE NEGATIVE (NEGATIVE); OCCULT BLOOD,URINE NEGATIVE (NEGATIVE); PROTEIN,URINE NEGATIVE (NEGATIVE); UROBILINOGEN,URINE 0.2 mg/dL (0.2-1.0)
[2021-08-23 15:30] VITALS: BP 103/61
== END 2021-08-23 15:49 | disposition home or self-care (01) ==
LOC: EDH 11:34
DX: R56.9 Unspecified convulsions (principal); R53.1 Weakness; E11.9 Type 2 diabetes mellitus without complications; I10 Essential (primary) hypertension; Z79.899 Other long term (current) drug therapy; Z79.84 Long term (current) use of oral hypoglycemic drugs; Z98.890 Other specified postprocedural states
CPT/HCPCS: 36415; 70450; 70544; 70551; 71045; 80053; 80305; 81003; 84484; 85025; 85610; 85730; 93005; 94640; 96374; 99285; J1953

== ENCOUNTER 2021-09-20 10:07 | Emergency (ER) | payer OTHER ==
[2021-09-20 10:53] LABS: BASOPHILS % (AUTO) 0.8 % (0.0-5.0); EOSINOPHILS % (AUTO) 0.7 % (0.0-8.0); HEMATOCRIT 48.4 % (42-54); LYMPHOCYTES % (AUTO) 25.7 % (21.0-51.0); MEAN CORPUSCULAR HEMOGLOBIN 27.3 pg (27.0-33.0); MEAN CORPUSCULAR HGB CONC 31.4 g/dL (32.0-36.0); MEAN CORPUSCULAR VOLUME 86.9 fL (79-99); MONOCYTES % (AUTO) 7.8 % (3.0-13.0); NEUTROPHILS % (AUTO) 64.6 % (40.0-77.0); PLATELET COUNT (AUTO) 157 K/uL (130-400); RED BLOOD CELL COUNT(AUTO) 5.57 MIL/uL (4.50-6.20); RED CELL DISTRIBUTION WIDTH 17.2 % (11.0-15.5); WHITE BLOOD COUNT (AUTO) 7.2 K/uL (4.8-10.8)
[2021-09-20 11:14] LABS: ALBUMIN 3.5 g/dL (3.5-5.0); CREATININE 1.1 mg/dL (0.5-1.5); POTASSIUM 3.7 mmol/L (3.5-5.1); TOTAL PROTEIN, SERUM 7.2 g/dL (6.0-8.3)
[2021-09-20] MEDS ORDERED: NAPR-1196 PO (12:10)
[2021-09-20 13:19] VITALS: BP 156/85
== END 2021-09-20 13:28 | disposition home or self-care (01) ==
LOC: EDH 10:07
DX: M94.0 Chondrocostal junction syndrome [Tietze] (principal); E11.9 Type 2 diabetes mellitus without complications; E78.00 Pure hypercholesterolemia, unspecified; I10 Essential (primary) hypertension
CPT/HCPCS: 36415; 71045; 80053; 84484; 85025; 93005

== ENCOUNTER → 2022-07-01 | Outpatient (CLI) | payer OTHER ==
[~2022-07-01] MED LIST changes: -LOSA100T58 PO; +LOSA100T59 PO; +NAPR-1196 PO
== END | disposition home or self-care (01) ==
LOC: SHCH 08:12
PROVIDERS: ATTEND Internal Medicine Cardiovascular Disease
DX: I48.0 Paroxysmal atrial fibrillation (principal); R06.09 Other forms of dyspnea; I51.89 Other ill-defined heart diseases
CPT/HCPCS: 93306

== ENCOUNTER 2022-08-05 12:28 | Emergency (ER) | payer OTHER ==
[~2022-08-05] VITALS: Ht 167.6 cm; Wt 127.0 kg
[2022-08-05] MEDS ORDERED: LEVETIRACETAM 500 MG/5 ML SD VIAL IV SCH (13:00)
[2022-08-05 13:23] LABS: BASOPHILS % (AUTO) 0.5 % (0.0-5.0); EOSINOPHILS % (AUTO) 0.5 % (0.0-8.0); HEMATOCRIT 48.9 % (42-54); LYMPHOCYTES % (AUTO) 26.5 % (21.0-51.0); MEAN CORPUSCULAR HEMOGLOBIN 27.9 pg (27.0-33.0); MEAN CORPUSCULAR HGB CONC 31.1 g/dL (32.0-36.0); MEAN CORPUSCULAR VOLUME 89.7 fL (79-99); MONOCYTES % (AUTO) 6.5 % (3.0-13.0); NEUTROPHILS % (AUTO) 65.7 % (40.0-77.0); PLATELET COUNT (AUTO) 146 K/uL (130-400); RED BLOOD CELL COUNT(AUTO) 5.45 MIL/uL (4.50-6.20); RED CELL DISTRIBUTION WIDTH 15.8 % (11.0-15.5); WHITE BLOOD COUNT (AUTO) 9.3 K/uL (4.8-10.8)
[2022-08-05 13:30] LABS: CREATININE 0.9 mg/dL (0.5-1.5); POTASSIUM 4.1 mmol/L (3.5-5.1)
[2022-08-05 13:35] LABS: ALBUMIN 3.8 g/dL (3.5-5.0); TOTAL PROTEIN, SERUM 7.1 g/dL (6.0-8.3)
[2022-08-05 14:28] LABS: APPEARANCE,URINE CLEAR (CLEAR); BILIRUBIN,URINE NEGATIVE (NEGATIVE); COLOR,URINE LIGHT-YELLOW (YELLOW); GLUCOSE, URINE (UA) >=1000 mg/dL (NEGATIVE); KETONES,URINE NEGATIVE (NEGATIVE); LEUKOCYTE ESTERASE ,URINE 75 Leu/uL (NEGATIVE); NITRATE,URINE NEGATIVE (NEGATIVE); OCCULT BLOOD,URINE NEGATIVE (NEGATIVE); PH,URINE 6.5 (5.0-8.0); PROTEIN,URINE NEGATIVE (NEGATIVE); UROBILINOGEN,URINE 0.2 mg/dL (0.2-1.0)
[2022-08-05 14:30] LABS: MUCUS,URINE RARE LPF (None Seen); RBC,URINE 0-1 /HPF (0-1); SQUAMOUS EPITHELIAL CELL,UR RARE /HPF (0-2)
[2022-08-05] MEDS ORDERED: LEVE-43 PO (16:23)
[2022-08-05] MEDS ORDERED: PRED20TA3 PO (16:23)
[2022-08-05] MEDS ORDERED: ALBU18HF7 IH (16:23)
[2022-08-05] MEDS ORDERED: LEVO750T68 PO (16:26)
[2022-08-05] MEDS ORDERED: LEVOFLOXACIN 500 MG TABLET PO SCH (16:30)
[2022-08-05] MEDS ORDERED: IPRATROPIUM/ALBUTEROL SULFATE 3 ML SOLUTION IH ONE (16:30)
[2022-08-05] MEDS ORDERED: SOLU-MEDROL 125MG VIAL IVP ONE (16:30)
[2022-08-05 17:50] VITALS: BP 104/62
== END 2022-08-05 17:54 | disposition home or self-care (01) ==
LOC: EDH 12:28
DX: R56.9 Unspecified convulsions (principal); J40 Bronchitis, not specified as acute or chronic; Z91.148 Patient's other noncompliance with medication regimen for other reason; E11.9 Type 2 diabetes mellitus without complications; Z79.52 Long term (current) use of systemic steroids
CPT/HCPCS: 99285; 70450; 71045; 84484; 80053; 83880; 85025; 87088; 81001; 36415; 93005; 94640; J1953; J2930

== ENCOUNTER 2022-09-07 16:11 | Emergency (ER) | payer OTHER ==
[~2022-09-07] VITALS: Ht 180.3 cm; Wt 181.4 kg
[~2022-09-07 16:11] MED LIST changes: +ALBU18HF7 IH; +LEVO750T68 PO; +PRED20TA3 PO
[2022-09-07 16:17] VITALS: PULSE 148; RESP 25; O2SAT 100
[2022-09-07 16:29] LABS: BASOPHILS % (AUTO) 0.5 % (0.0-5.0); EOSINOPHILS % (AUTO) 0.1 % (0.0-8.0); HEMATOCRIT 41.1 % (42-54); LYMPHOCYTES % (AUTO) 26.7 % (21.0-51.0); MEAN CORPUSCULAR HEMOGLOBIN 28.6 pg (27.0-33.0); MEAN CORPUSCULAR HGB CONC 29.9 g/dL (32.0-36.0); MEAN CORPUSCULAR VOLUME 95.6 fL (79-99); MONOCYTES % (AUTO) 11.8 % (3.0-13.0); NEUTROPHILS % (AUTO) 59.7 % (40.0-77.0); NUCLEATED RED BLOOD CELLS 0.7 % (0.0-0.19); PLATELET COUNT (AUTO) 149 K/uL (130-400); RED CELL DISTRIBUTION WIDTH 16.8 % (11.0-15.5); WHITE BLOOD COUNT (AUTO) 10.8 K/uL (4.8-10.8)
[2022-09-07 16:33] LABS: ABG OXYGEN SATURATION 91.7 % (95.0-99.0); BASE EXCESS,VENOUS BLOOD GAS -3.7 (-2.0-3.0); HCO3,VENOUS BLOOD GAS 23.8 (21.0-28.0); PCO2,VENOUS BLOOD GAS 53 (35-48); PH,VENOUS BLOOD GAS 7.273 (7.350-7.450)
[2022-09-07 16:40] VITALS: PULSE 146; RESP 24
[2022-09-07 16:44] LABS: CREATININE 1.4 mg/dL (0.5-1.5); POTASSIUM 4.5 mmol/L (3.5-5.1)
[2022-09-07 16:48] LABS: TOTAL PROTEIN, SERUM 6.9 g/dL (6.0-8.3)
[2022-09-07 16:51] LABS: B-TYPE NATRIURETIC PEPTIDE 317 pg/mL (0-100)
[2022-09-07] MEDS ORDERED: 0.9%NACL 1000ML 1,000 ML IV ONE (17:00)
[2022-09-07] MEDS ORDERED: SOLU-MEDROL 125MG VIAL IVP ONE (17:00)
[2022-09-07] MEDS ORDERED: ALBUTEROL 0.083% 2.5 MG/3 ML INH IH ONE (17:00)
[2022-09-07 18:10] VITALS: BP 110/49; PULSE 142; RESP 28; O2SAT 88
== END 2022-09-07 17:47 | disposition left against medical advice (07) ==
LOC: EDH 16:11
DX: R06.03 Acute respiratory distress (principal); E11.9 Type 2 diabetes mellitus without complications; E66.01 Morbid (severe) obesity due to excess calories; G47.33 Obstructive sleep apnea (adult) (pediatric); Z79.52 Long term (current) use of systemic steroids; Z86.73 Personal history of transient ischemic attack (TIA), and cerebral infarction without residual deficits; Z68.43 Body mass index [BMI] 50.0-59.9, adult
CPT/HCPCS: 99285; 96374; 71045; 96361; 84484; 80053; 82803; 83880; 85025; 87040 ×2; 83605; 36415; 93005; 36600; 94640; 94660; J7030; J2930